=== PATIENT | female | born 1975 | race Two or more races ===

== ENCOUNTER 2024-02-19 13:08 | Outpatient (CLI) | payer OTHER | END 2024-02-19 13:18 | disposition home or self-care (01) | LOC: SONOGRAMA 13:08 | PROVIDERS: ATTEND Obstetrics & Gynecology | DX: N85.00 Endometrial hyperplasia, unspecified (principal) ==

== ENCOUNTER 2025-01-05 07:44 | Outpatient (CLI) | payer OTHER | END 2025-01-05 07:54 | disposition home or self-care (01) | LOC: MAMO-SONO 07:44 | DX: N60.19 Diffuse cystic mastopathy of unspecified breast (principal); N60.11 Diffuse cystic mastopathy of right breast; N60.12 Diffuse cystic mastopathy of left breast ==